=== PATIENT | male | born 2000 | race Caucasian/White ===

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

== ENCOUNTER 2023-10-21 21:27 | Emergency (ER) | payer MEDICARE, MEDICAID, SELFPAY ==
[2023-10-21 21:33] VITALS: BP 128/72; PULSE 97; RESP 18; TEMP 36.6; O2SAT 99; BMI 18.3
--- NOTE | 2023-10-21 21:42 | ED_ITS ---
HPI - Burn/Smoke Inhalation General: Chief complaint: Burn/Smoke Inhalation Stated complaint: Burn on right hand Time Seen by Provider: 10/21/23 21:42 History of Present Illness: 22-year-old male patient comes in today for injury to the palmar right hand. 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 Tetanus is up-to-date. Review of Systems General: Reports: 10 or more systems reviewed and unremarkable except in HPI and below PFSH ED PFSH: Medical History (Updated 10/21/23 @ 21:49 by GISELA Peterson) Learning disabilities Psychiatric care Family History Other CAD (coronary artery disease) Cancer Diabetes Family history of premature coronary artery disease Hypertension Psychiatric illness Stroke Social History (Updated 10/09/20 @ 09:05 by Sammi Myles NP) Smoking and tobacco/nicotine status: never used tobacco/nicotine Second hand smoke exposure: No Alcohol intake: never Substance/Drug Use: never Adopted: Yes (Aunt Zena Kenney) Do you think of yourself as: Straight/Heterosexual Current gender identity: Male Marilu/Orthodox: Oriental Orthodox Special marilu needs: No Physical Exam Const: COMMON NORMALS: alert HENMT: COMMON NORMALS: normocephalic HEAD & SCALP: normocephalic Neck/C-Spine: COMMON NORMALS: full ROM Resp: COMMON NORMALS: normal respiratory effort Cardio: COMMON NORMALS: regular rate RATE: regular rate Back/Pelvis: COMMON NORMALS: thoracic and lumbar spine normal to inspection Extremity: RIGHT UPPER EXTREMITY: Yes hand & digits (Mild erythema with light blistering palm) Neuro: SENSORIUM/ORIENTATION: Yes alert Skin: NARRATIVE SKIN EXAM: Superficial burn to the palmar right hand Course Vital Signs: Vital signs: Vital Signs Temperature 98 F 10/21/23 21:33 Pulse Rate 97 10/21/23 21:33 Respiratory Rate 18 10/21/23 21:33 Blood Pressure 128/72 10/21/23 21:33 Pulse Oximetry 99 10/21/23 21:33 MDM - Burn/Smoke Inhalation Medical Decision Making Patient comes in today for a superficial injury to the palmar right hand. On exam he has superficial burn with minimal redness and some light blistering. Patient has good range of motion of the hand. No significant abnormality otherwise. Reviewed exam with patient with recommendation for treatment and follow-up. Patient reported understanding agreed to plan. No radiology studies performed this visit Discharge Plan Discharge Patient Disposition: Home Clinical Impression: Superficial burn of right hand Qualifiers: Encounter type: initial encounter Burn of hand location: palm Qualified Code(s): T23.151A - Burn of first degree of right palm, initial encounter Condition: Stable Prescriptions: No Action dextroamphetamine-amphetamine [Adderall XR] 20 mg capsule,extended release 24hr 20 mg PO DAILY 30 Days Qty: 30 0RF guanfacine [Intuniv ER] 1 mg tablet extended release 24 hr 1 mg PO .AM Qty: 30 5RF dextroamphetamine-amphetamine [Adderall XR] 20 mg capsule,extended release 24hr 20 mg PO DAILY 30 Days Qty: 30 0RF dextroamphetamine-amphetamine [Adderall XR] 20 mg capsule,extended release 24hr 20 mg PO DAILY 30 Days Qty: 30 0RF Discharge Orders: Discharge ED (Routine); Ordered 10/21/23 Ordered By: Fabricio Bernard Referrals: Rashad Bella [Primary Care Provider] - Discharge Diet: Usual diet Discharge Activity: Increase activity as tolerated Patient Instructions: Superficial Burn (ED) Activity Restrictions/Additional Instructions: Keep wound clean and dry. Cover with a dressing and glove for protection at work. Follow-up with primary care as needed. Return to ED for new concerns. Stand Alone Forms: Work/School Release Coding Level of Care Code ED Re[employer] for [employer]
== END 2023-10-21 22:00 | disposition home or self-care (01) ==
PROVIDERS: Emergency Provider Nurse Practitioner Family; PCP Family Medicine
DX: T23.151A Burn of first degree of right palm, initial encounter (principal); X08.8XXA Exposure to other specified smoke, fire and flames, initial encounter; Y92.512 Supermarket, store or market as the place of occurrence of the external cause; Y99.0 Civilian activity done for income or pay
CPT/HCPCS: 99281